=== PATIENT | female | born 1990 | race African-American/Black ===

== ENCOUNTER 2018-05-12 13:33 | Outpatient (CLI) | payer OTHER ==
--- NOTE | 2018-05-12 15:41 | ULT ---
ULTRASOUND OBSTETRICAL COMPLETE: 05/12/18 HISTORY: 28-year-old female for anatomy. FINDINGS: number: H[place]. lie: Breech. Maternal cervix: Poorly visualized. Approximately 2.5 cm in length and closed. Placenta: Posterofundal. Anterior Lagrange-Mason contraction visualized. Amniotic fluid volume: ELENA=17 cm. heart rate: 146 bpm The following anatomy is visualized, with no evidence of anomalies: Head, lateral ventricles, cerebellum, nose and lips, spine, upper limbs, lower limbs, four chamber he art, umbilical cord, cord insertion, stomach, kidneys, and bladder. biometry: Head circumference (HC): 18.2 cm 20w 4d Biparietal diameter (BPD): 4.7 cm 20w 3d Abdominal circumference (AC): 15.0 cm 20w 2d Femur length (FL): 3.3 cm 20w 2d Average ultrasound age (AUA): 20w 3d Estimated date of delivery (CATHRYN): 09/26/2018 Last menstrual period (LMP): 08/0 08/2017 Gestational age by LMP: 19w 6d Estimated weight (EFW): 344 g +/- 50 g IMPRESSION: 1. Live second trimester intrauterine gestation. 2. Estimated gestational age of 20 weeks, 3 days. 3. Breech lie. 4. No anatomical abnormalities. 5. Apparent mass indenting the ventral aspect of the gestational sac is probably a Kelvin-Mason cont raction. naomy [] POS: [place]
== END 2018-05-12 13:34 | disposition home or self-care (01) ==
LOC: BICULT 13:33
PROVIDERS: ATTEND Family Medicine
DX: O09.892 Supervision of other high risk pregnancies, second trimester (principal); Z3A.20 20 weeks gestation of pregnancy
CPT/HCPCS: 76805

== ENCOUNTER 2018-05-30 10:30 | Day surgery (SDC) | payer OTHER ==
[2018-05-30 11:05] VITALS: BP 121/68; TEMP 98.7
[2018-05-30 11:06] VITALS: BMI 35.9
--- NOTE | 2018-05-31 01:30 | PRG ---
DATE OF SERVICE: 05/30/2018 OB ER ENCOUNTER PRIMARY LEI MAKER: Dr. Remy Pink. CHIEF COMPLAINT: Abdominal pain. HISTORY OF PRESENT ILLNESS: The patient is a 28-year-old female, G3, P1, with an intrauterine at 22 weeks and 3 days, presenting to Labor and Delivery with concerns of a 1 day history of right-sided pelvic pain. The patient reports that the pain is worse with activity and movement such as rolling over in bed, getting out of the chair, and other activities. The patient denies uterine contractions. She denies any recent illness, fever, fall, headache, chest pain, shortness of breath, significant nausea, vomiting, diarrhea, constipation, hip problems, knee problems, or muscle weakness. The patient denies vaginal bleeding or leakage of fluid. Denies urinary urgency or frequency. PAST MEDICAL HISTORY: Significant with a history of preeclampsia complicated by iatrogenic delivery at 25 weeks. PAST SURGICAL HISTORY: Prior x1. ALLERGIES: NO KNOWN DRUG ALLERGIES. MEDICATIONS: 1. Aspirin. 2. vitamins. LABORATORY DATA: OB labs are unavailable. REVIEW OF SYSTEMS: Per HPI. PHYSICAL EXAMINATION: VITAL SIGNS: Blood pressure 121/68, heart rate of 86, respiratory rate of 18, temperature 98.7. GENERAL: She appears to be in no acute distress. She is alert, oriented, cooperative, and pleasant to interact with. HEAD: Normocephalic and atraumatic. LUNGS: Clear to auscultation bilaterally. HEART: Regular rate and rhythm. ABDOMEN: Soft. PELVIC: She has pain in the right lower quadrant with deviation of the uterus consistent with ligament pain. She has no SI joint pain or paravertebral pain. EXTREMITIES: Nontender, nonedematous. heart tones are Doppler'd in the 140s. ASSESSMENT AND PLAN: The patient is a 28-year-old, G3, P1 female with an intrauterine at 22 weeks who has symptoms consistent with ligamentous pain. The patient has been given reassurance and been offered pain medication while she is here, but has chosen to take Tylenol at home. She has been encouraged to keep her primary OB visit as scheduled. Job ID: [id number]
== END 2018-05-30 12:02 | disposition home or self-care (01) ==
LOC: L&D/OP 10:30
PROVIDERS: ATTEND Family Medicine
DX: O99.89 Other specified diseases and conditions complicating pregnancy, childbirth and the puerperium (principal); R10.9 Unspecified abdominal pain; Z98.890 Other specified postprocedural states; Z79.82 Long term (current) use of aspirin; Z3A.22 22 weeks gestation of pregnancy
CPT/HCPCS: 99282

== ENCOUNTER 2018-09-10 01:41 | Inpatient (IN) | payer OTHER ==
[2018-09-10 02:13] VITALS: BMI 41.1
[2018-09-10] MEDS ORDERED: Ondansetron PF 4 MG/2 ML Vial IVP PRN ×2 (02:31→15:17)
[2018-09-10] MEDS ORDERED: Acetaminophen 500 MG TAB PO PRN (02:31)
[2018-09-10] MEDS ORDERED: Promethazine HCl 25 MG/ML VIAL IM PRN ×2 (02:31→15:17)
[2018-09-10] MEDS ORDERED: Lactated Ringer's 1,000 ML IV SCH (02:45)
[2018-09-10] MEDS ORDERED: Bicitra 30 ML UDCUP PO SCH ×2 (02:45→08:45)
[2018-09-10 02:57] LABS: Hemoglobin 9.3 g/dL (12.0-16.0); Mean Corpuscular HGB CONC 32.3 g/dL (32.0-36.0); Mean Corpuscular Hemoglobin 25.8 pg (27.0-31.0); Mean Corpuscular Volume 79.9 fL (78.0-98.0); Mean Platelet Volume 8.6 fL (7.4-10.4); Platelet Count 225 thou/uL (130-400); Red Blood Cell (RBC) Count 3.58 mill/uL (4.20-5.40); White Blood Cell (WBC) Count 13.3 thou/uL (4.8-10.8)
--- NOTE | 2018-09-10 03:10 | PDOC.FPROB ---
FMR OB H&P: HPI - History of Present Illness Chief Complaint: Abdominal Pain Indentification: 28 yo @ 37.1 weeks History of Present Illness: 28 yo @ 37.1 weeks with pmh of classical due to preeclampsia at 25 weeks comes in with reported upper abdominal pain. Pt reports pain started about an hour ago. Reports pain as achey. States has happened a couple times over the last hour. Pt denies any n/v. Pt denies any LOF, vaginal bleeding, discharge or irritation. Denies any urinary sx's. Pt denies any fever or chills. Pt reports FM. Pt at around midnight. States she has not felt pain like this before. Primary Care Physician: Joesph FMR OB H&P: Current - Care : 3 Para: 1 Gestational age: 37.1 weeks Due date: 09/30/2018 - OB Labs Blood type: O RH: positive Antibody Screen: negative HIV: negative RPR: negative HepBsAg: negative Rubella: immune Urine drug screen: positive (Marijuana) Gonorrhea: negative Chlamydia: negative 1 hour gtt: 137 GBS: unknown FMR OB H&P: Medications - Current Home Medications: Medication Instructions Recorded Confirmed Type Aspirin Chewable [Aspirin Chewable 1 tab PO DAILY 05/30/18 09/10/18 History Tablet] Allergies/Adverse Reactions: Allergies Allergy/AdvReac Type Severity Reaction Status Date / Time No Known Drug Allergies Allergy Verified 09/10/18 02:08 FMR OB H&P: ROS - Review of Systems ENT: denies: nasal congestion, rhinorrhea Cardiovascular: denies: chest pain Respiratory: denies: cough, congestion, shortness of breath Gastrointestinal: reports: abdominal pain, cramping. denies: nausea, vomiting, diarrhea, constipation Genitourinary (Female): denies: incontinence, dysuria, vaginal discharge, vaginal pain, vaginal bleeding, contractions (Unsure if they are ctx pain), vaginal pressure Musculoskeletal: denies: pain, stiffness Neurologic: denies: weakness Integumentary: denies: itching, rash, lesions Psychological: denies: depression, anxiety FMR OB H&P: Vital Signs - Maternal Vital signs: Vital Signs - First Documented Temp Pulse Resp BP 99.4 F 82 16 136/80 09/10/18 02:07 09/10/18 02:07 09/10/18 02:07 09/10/18 02:07 - Heart Tones Baseline: 150 Variability: moderate Acceleration: present Deceleration: late Category: category 2 [place] contractions every: irregular FMR OB H&P: Physical Exam - Physical Exam General: NAD, awake, alert and oriented HEENT: normocephalic and atraumatic, PERRLA, grossly normal vision, grossly normal hearing Neck: supple, trachea midline Heart: RRR, normal S1/S2, no murmurs/rubs/gallops, pulses present, no edema General: CTAB, no respiratory distress, good air movement, no rales/rhonchi, no wheezing Abdomen: soft, gravid, non-tender, bowel sound present, no masses Musculoskeletal: normal gait and station, FROM in all four extremities Neurological: sensation to pain,touch and proprioception grossly normal Skin: no rash, capillary refill <2 seconds Psychiatric: intact recent and remote memory, normal mood and affect - Pelvic Exam SVE: 3:00 Cervix- Fingertip and Posterior FMR OB H&P: Results - Labs Lab results: Laboratory Results - last 24 hr 09/10/18 02:44 WBC 13.3 H RBC 3.58 L Hgb 9.3 L Hct 28.6 L MCV 79.9 MCH 25.8 L MCHC 32.3 RDW 14.0 Plt Count 225 MPV 8.6 FMR OB H&P: A/P - Problem List (1) Current Visit: No Status: Acute Qualifiers: Weeks of gestation: 37 weeks Qualified Code(s): Z3A.37 - 37 weeks gestation of Disposition: 28 yo @ 37.1 weeks comes in with Abdominal Pain -Pt had some recurrent lates initially on FHT tracing. CAT2 strip. Will get patient admitted for observation at this time. -Will give fluid bolus and then LR @125 mls/hr. -Pt previous x1. Classical . Pt pain not constant. Pt ate around midnight. Will keep pt until NPO for 6 hours and then reasses for labor. -SVE showed cervix at fingertip and high. -Ctx vs GERD- will give some simethicone and Tums to see if helps with pain. Discussion: Date/Time: 09/10/18 0306 This H&P was discussed with [] and [] who agree with the above documentation and plan. Addendum - Attending - Attending Attestation Date/Time: 09/10/18 5260 I personally evaluated the patient and discussed the management with Dr. Sutton. 28 yo at 37 weeks with h/o classical C/S here c/o pain. SVE FT/ post. FHTs stable, irregular UCs seen. Labs obtained. Will start IV and observe over next few hours. I agree with the History, Examination, Assessment and Plan documented above with any addition or exceptions noted below.
[2018-09-10] MEDS ORDERED: Calcium Carbonate 500 MG ChewTAB PO ONE (03:31)
[2018-09-10 03:37] LABS: HBSAg Index 0.34 S/CO (0-0.99); Hep B Surf Ag Non-Reactive S/CO (NonReactive)
[2018-09-10 04:38] LABS: Syphilis Antibody Nonreactive (Nonreactive); Syphilis Antibody Index 0.02 S/CO (<1.00 Non-Reactive)
--- NOTE | 2018-09-10 08:13 | PDOC.EVN ---
Event Note - Event Note Event Note: PREOP CS NOTE Senior [facility] Developer OBGYN Time: 809 L&D Patient with known CLASSICAL CS at 27 weeks in [place]. Here with irregular LAP and ut irritability. Per ACOG recommendations, repeat CS should be at 36 and 0 to 37 and 0. We will proceed with repeat CS today. Please see ACOG CO 766
--- NOTE | 2018-09-10 08:30 | PDOC.EVN ---
Event Note - Event Note Event Note: CS Timing 08 Case discussed with Anesthesia, Dr Ramsay. Per Dr Ramsay, he will "let us know" when anesthesia is available. There is another CS about to begin this AM and cases in OR. We will watch closely here and aim for repeat CS as aoon as safely possible.
[2018-09-10] MEDS ORDERED: CEFAZOLIN 2 GM in Premix Bag 1 BAG IVPB SCH (08:45)
[2018-09-10 09:50] LABS: HIV (1/2) Antibody/Antigen Non-Reactive (NonReactive); HIV 1/2 INDEX 0.13 S/CO (<1.00)
--- NOTE | 2018-09-10 11:11 | PDOC.EVN ---
Event Note - Event Note Event Note: Anesthesia update MD Devendra (Anesthesia) suspects/aiming for 1300 CS
[2018-09-10] MEDS ORDERED: Ondansetron PF 4 MG/2 ML Vial ONE ×2 (13:03→14:54)
[2018-09-10] MEDS: Lactated Ringer's 1,000 ML IV SCH ×3 (13:04→20:32)
[2018-09-10] MEDS ORDERED: MORPHINE 5 MG/10 ML PF VIAL ONE (14:07)
[2018-09-10] MEDS ORDERED: Oxytocin 10 UNITS/ML VIAL ONE ×2 (14:07→15:12)
[2018-09-10] MEDS ORDERED: ePHEDrine/0.9% NaCl/PF SYRINGE 50 mg/10 ml ONE (14:08)
[2018-09-10] MEDS ORDERED: Azithromycin 500 MG VIAL ONE (14:14)
--- NOTE | 2018-09-10 14:19 | PDOC.EVN ---
Event Note - Event Note Event Note: Anesthesia now available: preceding to OR
[2018-09-10] MEDS ORDERED: Acetaminophen/Codeine 30-300mg Tablet PO PRN ×2 (14:34)
[2018-09-10] MEDS ORDERED: Lanolin Ointment 7 GM TUBE TOP PRN (14:34)
--- NOTE | 2018-09-10 14:39 | PDOC.EVN ---
Event Note - Event Note Event Note: BMI noted For VTE prophylaxis: use SCDs...12 hours from now would be 0300. To avoid early AM injection I will hold on lovenox and encouarge early ambulation.
[2018-09-10] MEDS ORDERED: NS / Oxytocin 40 units/1000ml 1,000 ML IV SCH (14:45)
[2018-09-10] MEDS ORDERED: Naloxone HCl 0.4 mg/ml Vial IVP PRN ×2 (15:17)
[2018-09-10] MEDS ORDERED: Eucerin (Mineral Oil/Petrolatum,White) 30 gm Jar TOP PRN (15:17)
[2018-09-10] MEDS ORDERED: HYDROmorphone 2 MG/ML VIAL SLOW IVP PRN (15:17)
[2018-09-10] MEDS ORDERED: Ondansetron HCl/PF 4 MG/2 ML Vial IVP PRN (15:17)
[2018-09-10] MEDS ORDERED: diphenhydrAMINE 50 MG/ML VIAL IVP PRN (15:17)
[2018-09-10] MEDS ORDERED: Naloxone HCl 0.4 mg/ml Vial IV PRN (15:17)
[2018-09-10] MEDS ORDERED: Promethazine HCl 25 MG SUPP PR PRN (15:17)
[2018-09-10] MEDS ORDERED: Meperidine HCl/PF 25 MG/ML VIAL SLOW IVP PRN (15:17)
[2018-09-10] MEDS ORDERED: L&D-Morphine 4 MG/ML VIAL SLOW IVP PRN (15:17)
[2018-09-10] MEDS ORDERED: Communication Order-Pharmacy FS SCH (15:30)
[2018-09-10] MEDS ORDERED: Ketorolac Tromethamine 30 MG/ML VIAL IVP SCH (15:30)
--- NOTE | 2018-09-10 15:30 | PDOC.OP ---
Operative Note - Operative Note Operative Note: CS NOTE [facility] faculty Date: 09/10/18 Time: approx 1445 Preprocedue DX: Prior classical CS at 27 weeks, now at 37 weeks with threatened labor Postprocedure: same and s/p repeat LTCS procedure: Repaet LTCS without extension, under pfannenstiel Surgeon: Kashmir Assist: Lesley Anesthesia: SAB Antibiotics: Ancef/Zmax IVF: 900ml crystaloids EBL 600 (QBL pending) UOP: by cottrell (see anesthesia rec) Compl: none Counts correct Disposition: to for routine recovery SCDs in use Indication: prior classical CS with uterine CTX Repeat pfannesteil performed in usual fashion. No intra-abdominal adhseions noted. LTCS performed Hysterotomy closed in 2 layer closure with ) Vicryl Rectus reapproximated in midline with 2-0 chromic Fascia closed with O-PDS x 2 Subcut tissue closed with 3-0 plain Skin closed with benja
[2018-09-10] MEDS: Ibuprofen 800 MG TAB PO SCH (22:56)
[2018-09-10] MEDS: Enoxaparin Sodium 40 MG/0.4 ML SYRINGE SC SCH (22:57)
[2018-09-10] MEDS: Ketorolac Tromethamine 30 MG/ML VIAL IVP PRN (22:58)
[2018-09-11] MEDS: Lactated Ringer's 1,000 ML IV SCH ×3 (00:16→14:26)
[2018-09-11] MEDS: Ketorolac Tromethamine 30 MG/ML VIAL IVP PRN (04:59)
[2018-09-11] MEDS: Acetaminophen/Codeine 30-300mg Tablet PO PRN ×3 (05:17→19:08)
[2018-09-11] MEDS ORDERED: Ibuprofen 800 MG TAB PO PRN (06:29)
[2018-09-11] MEDS: Ibuprofen 800 MG TAB PO SCH ×3 (06:32→21:36)
[2018-09-11 07:30] LABS: Hemoglobin 8.5 g/dL (12.0-16.0); Mean Corpuscular HGB CONC 32.4 g/dL (32.0-36.0); Mean Corpuscular Hemoglobin 25.7 pg (27.0-31.0); Mean Corpuscular Volume 79.5 fL (78.0-98.0); Mean Platelet Volume 8.5 fL (7.4-10.4); Platelet Count 193 thou/uL (130-400); RBC Distribution Width 14.2 % (11.5-14.5); Red Blood Cell (RBC) Count 3.31 mill/uL (4.20-5.40); White Blood Cell (WBC) Count 13.1 thou/uL (4.8-10.8)
--- NOTE | 2018-09-11 08:43 | DN ---
DATE OF PROCEDURE: 09/10/2018 RESIDENT SURGEON: Minesh Sutton MD, PGY-2. PROCEDURE PERFORMED: Primary low transverse section. PREOPERATIVE DIAGNOSES: 1. Term intrauterine . 2. Previous classical incision. POSTOPERATIVE DIAGNOSES: 1. Term intrauterine . 2. Previous classical incision. ANESTHESIA: Spinal. INDICATIONS: This patient is a 28-year-old, G3, P1 female at 37 and 2 weeks gestation who came in with upper abdominal pain and she had a prior classical section and according to the ACOG guidelines, they recommend delivery between 36 and 37 weeks. Also patient had some irritability throughout the day. Baby had some moments of flash trip and the patient had some signs of labor. PROCEDURE IN DETAIL: After risks, benefits and alternatives were explained to the patient, she gave informed consent. Preoperative antibiotics included cefazolin 2 g IV. The patient was taken to the operating room and spinal anesthesia was initiated. She was placed in the supine position with the left tilt, and prepped and draped in the usual fashion. A Pfannenstiel incision was made with a scalpel and carried down to the level of the fascia, which was sharply nicked. The fascial cut was extended bilaterally with Hall scissors. Superior and inferior edges of the fascial edges were elevated with Kari clamps and underlying rectus muscles were sharply and bluntly dissected free. The recti were divided digitally and retracted manually. Peritoneum was entered bluntly and retracted with the Ken O retractor. A low transverse score was made with a scalpel and the uterus was entered in the midline with the scalpel. Clear fluid was seen. The hysterotomy extended manually. was noted to be vertex and was easily delivered by fundal pressure. Mouth and nares were bulb suctioned. Cord clamped and cut. A grossly normal male was handed to awaiting nurse. Cord blood was obtained. Placenta was manually extracted and found to be intact with three vessel cord and discarded. The uterus and endometrium was curetted with a dry lap and the uterus was closed with a running locking 1-0 Monocryl suture. Following this, hemostasis was noted. The abdomen was irrigated with saline and suctioned free of clots. The Ken O was removed. The hysterotomy was again noted to be hemostatic. The peritoneum was not very visible due to previous adhesions from the prior . Muscle layer was closed with a running nonlocking 2-0 chromic suture. Fascia was then closed with a nonlocking running 0-PDS suture. The subcu tissue was irrigated and there was no bleeders. The subcu layer was approximated with a 3-0 chromic suture in the subcu layer. The skin was then approximated with benja and a pressure dressing was placed. All counts were correct. The patient tolerated the procedure well and was taken to the recovery room in stable condition. EBL was 600 mL. QBL was pending at the time. COMPLICATIONS: None. SPECIMENS: Cord blood sent to lab for blood type. FINDINGS: Grossly normal male infant with Apgars of 9 and 9. Grossly normal placenta, three vessel cord discarded. DRAINS: Christianson drain to gravity. Job ID: [id number]
[2018-09-11] MEDS ORDERED: Adacel (T-DAP) 0.5 ML SYRINGE IM ONE (09:00)
[2018-09-11] MEDS ORDERED: Measles/Mumps/Rubella 10 MCG/0.5 ML VIAL SC ONE (09:00)
[2018-09-11] MEDS ORDERED: Varicella virus, LIVE 0.5 ML VIAL SC ONE (09:00)
[2018-09-11] MEDS: Prenatal Vitamin 1 TAB PO SCH (09:15)
[2018-09-11] MEDS: Simethicone Chewable 80 MG TAB PO PRN (21:36)
[2018-09-11] MEDS: Enoxaparin Sodium 40 MG/0.4 ML SYRINGE SC SCH (23:05)
[2018-09-12] MEDS: Acetaminophen/Codeine 30-300mg Tablet PO PRN ×4 (02:13→21:10)
[2018-09-12] MEDS: Ibuprofen 800 MG TAB PO SCH ×3 (05:11→21:12)
[2018-09-12] MEDS: Lactated Ringer's 1,000 ML IV SCH ×3 (06:42→18:55)
[2018-09-12] MEDS: Prenatal Vitamin 1 TAB PO SCH (10:48)
[2018-09-12] MEDS: Simethicone Chewable 80 MG TAB PO PRN (21:11)
[2018-09-12] MEDS: Enoxaparin Sodium 40 MG/0.4 ML SYRINGE SC SCH (22:21)
[2018-09-13] MEDS: Acetaminophen/Codeine 30-300mg Tablet PO PRN ×3 (02:07→10:35)
[2018-09-13] MEDS: Ibuprofen 800 MG TAB PO SCH (05:55)
[2018-09-13 08:08] VITALS: BP 134/80; TEMP 99
[2018-09-13] MEDS: Prenatal Vitamin 1 TAB PO SCH (10:36)
[2018-09-13] MEDS: Lactated Ringer's 1,000 ML IV SCH (11:43)
[2018-09-13] MEDS ORDERED: ePHEDrine/0.9% NaCl/PF SYRINGE 50 mg/10 ml ONE (13:35)
== END 2018-09-13 13:17 | disposition home or self-care (01) | DRG 788 ==
LOC: L&D/OP 01:41 → L&D 08:31 → 3SW 17:41
PROVIDERS: ADMIT Obstetrics & Gynecology; ATTEND Family Medicine
PROC: 10D00Z1 Extraction of Products of Conception, Low, Open Approach (ICD-10-PCS; principal; 2018-09-10)
DX: O34.212 Maternal care for vertical scar from previous cesarean delivery (principal); Z3A.37 37 weeks gestation of pregnancy; Z37.0 Single live birth; Z79.82 Long term (current) use of aspirin
CPT/HCPCS: 36415; 51702; 85027; 86780; 86850; 86900; 86901; 87340; 87389; 99285; J0456; J0690; J1650; J1885; J2270; J2405; J2590